=== PATIENT | female | born 1955 | race Caucasian/White ===

== ENCOUNTER → 2023-04-01 | Outpatient (CLI) | payer MEDICARE, BC ==
[~2023-04-01] MED LIST: CLON1TAB17 PO; GABA-284 PO; LEVO50TA5 PO; LISI20TA33 PO; OMEP10CASR PO; PERC5TAB12 PO; QUET200T2 PO; ROSU10TA6 PO; XARE20TA PO; ZOLO100T PO
== END ==
LOC: M SOG 11:34
PROVIDERS: ATTEND Orthopaedic Surgery
DX: S32.810D Multiple fractures of pelvis with stable disruption of pelvic ring, subsequent encounter for fracture with routine healing (principal)

== ENCOUNTER 2023-04-30 19:27 | Emergency (ER) | payer MEDICARE, BC ==
[~2023-04-30] VITALS: Ht 157.5 cm; Wt 60.9 kg
[2023-04-30] MEDS: diazePAM 10MG/2ML SYRINGE IM ONE (21:54)
[2023-04-30] MEDS: methylPREDNISolone 125MG 2ML VIAL IM ONE (21:54)
[2023-05-01] MEDS ORDERED: PERC5TAB12 PO (00:13)
[2023-05-01] MEDS: OXYCODONE/APAP 5MG/325MG(HOME DOSE PACK) PO ONE (00:29)
[2023-05-01 00:30] VITALS: BP 121/69; TEMP 98.1; O2SAT 99
== END 2023-05-01 00:30 | disposition home or self-care (01) ==
LOC: M ED 19:27
DX: S32.511A Fracture of superior rim of right pubis, initial encounter for closed fracture (principal); S32.110A Nondisplaced Zone I fracture of sacrum, initial encounter for closed fracture; W19.XXXA Unspecified fall, initial encounter; M51.36 Other intervertebral disc degeneration, lumbar region; I10 Essential (primary) hypertension; E03.9 Hypothyroidism, unspecified; K21.9 Gastro-esophageal reflux disease without esophagitis; E78.5 Hyperlipidemia, unspecified; Z79.01 Long term (current) use of anticoagulants; Z85.118 Personal history of other malignant neoplasm of bronchus and lung; Z92.3 Personal history of irradiation; Z91.040 Latex allergy status; Z79.891 Long term (current) use of opiate analgesic; Z79.811 Long term (current) use of aromatase inhibitors; Z79.83 Long term (current) use of bisphosphonates; Z79.899 Other long term (current) drug therapy
CPT/HCPCS: 71046; 71250; 72131; 72192; 73110; 87486; 87581; 87633; 87798; 96372; 99284; J2930; J3360

== ENCOUNTER → 2023-08-15 | Outpatient (CLI) | payer MEDICARE, BC ==
[~2023-08-15] MED LIST changes: -ROSU10TA6 PO; +ROSU10TA61 PO
== END ==
LOC: M RAD 07:20
PROVIDERS: ATTEND Nurse Practitioner Family
DX: R10.31 Right lower quadrant pain (principal); Z90.5 Acquired absence of kidney

== ENCOUNTER 2023-11-05 13:37 | Emergency (ER) | payer MEDICARE, BC ==
[~2023-11-05] VITALS: Ht 162.6 cm; Wt 65.9 kg
[2023-11-05 13:38] VITALS: TEMP 97.8
[2023-11-05] MEDS ORDERED: PROL60SO (14:12)
[2023-11-05 14:20] LABS: BASO % 1.1 % (0.0-1.0); EOS # 0.3 10^3/uL (0.0-0.5); EOS % 7.6 % (0.0-3.0); HEMATOCRIT 32.6 % (36.0-47.0); HEMOGLOBIN 10.3 g/dl (12.0-15.5); LYMPH # 0.4 10^3/uL (1.5-5.0); LYMPH % 10.7 % (24.0-44.0); MEAN CORPUSCULAR HEMOGLOBIN 27.9 pg (27.0-33.0); MEAN CORPUSCULAR HGB CONC 31.6 g/dl (32.0-36.5); MEAN CORPUSCULAR VOLUME 88.3 fl (80.0-96.0); MONO # 0.4 10^3/uL (0.0-0.8); MONO % 11.8 % (2.0-8.0); NEUTROPHILS # 2.4 10^3/uL (1.5-8.5); NEUTROPHILS % 68.5 % (36.0-66.0); PLATELET COUNT, AUTOMATED 181 10^3/uL (150-450); RED BLOOD COUNT 3.69 10^6/uL (4.00-5.40); WHITE BLOOD COUNT 3.6 10^3/uL (4.0-10.0)
[2023-11-05 14:37] LABS: INR 1.09; PARTIAL THROMBOPLASTIN TIME 35.5 SECONDS (24.8-34.2); PROTHROMBIN TIME 13.8 SECONDS (12.5-14.5)
[2023-11-05 14:51] LABS: CK-MB VALUE MASS 4.9 NG/ML (<3.6)
[2023-11-05 14:53] LABS: ALBUMIN 3.2 G/DL (3.2-5.2); ALKALINE PHOSPHATASE 72 U/L (46-116); ALT/SGPT 16 U/L (7.0-40); AST/SGOT 16 U/L (<34); BILIRUBIN,DIRECT < 0.1 MG/DL (<0.4); BILIRUBIN,TOTAL < 0.2 MG/DL (0.3-1.2); BLOOD UREA NITROGEN 17 MG/DL (9-23); CALCIUM LEVEL 8.4 MG/DL (8.3-10.6); CARBON DIOXIDE LEVEL 25 MMOL/L (20-31); CHLORIDE LEVEL 112 MMOL/L (98-107); CPK CREATINE PHOSPHOKINASE 163 U/L (34-145); CREATININE FOR GFR 0.84 MG/DL (0.55-1.30); GLOMERULAR FILTRATION RATE > 60.0 (>45); GLUCOSE, FASTING 160 MG/DL (74-106); POTASSIUM SERUM 4.5 MMOL/L (3.5-5.1); SODIUM LEVEL 141 MMOL/L (136-145); TOTAL PROTEIN 6.7 G/DL (5.7-8.2)
[2023-11-05 15:00] VITALS: BP 137/71; O2SAT 96
[2023-11-05] MEDS ORDERED: ISOVUE-370 76% 100ML VIAL As Ordered ONE (15:03)
[2023-11-05] MEDS: ACETAMINOPHEN TAB 650MG DOSE (2X325MG) PO ONE (15:22)
[2023-11-05] MEDS ORDERED: OXYC-517 PO (16:01)
[2023-11-05] MEDS: oxyCODONE 5MG TAB PO ONE (16:35)
== END 2023-11-05 16:43 | disposition home or self-care (01) ==
LOC: M ED 13:37
DX: R07.89 Other chest pain (principal); C34.90 Malignant neoplasm of unspecified part of unspecified bronchus or lung; I45.10 Unspecified right bundle-branch block; I10 Essential (primary) hypertension; E78.5 Hyperlipidemia, unspecified; E03.9 Hypothyroidism, unspecified; F17.200 Nicotine dependence, unspecified, uncomplicated; Z91.040 Latex allergy status; Z86.718 Personal history of other venous thrombosis and embolism; Z90.89 Acquired absence of other organs; Z79.811 Long term (current) use of aromatase inhibitors; Z79.899 Other long term (current) drug therapy
CPT/HCPCS: 36415; 71046; 71275; 80048; 80076; 82550; 82553; 83880; 84484; 85025; 85379; 85610; 85730; 93005; 99284; Q9967